=== PATIENT | female | born 1995 | race Caucasian/White ===

== ENCOUNTER 2018-05-17 23:03 | Emergency (ER) | payer OTHER ==
[2018-05-17] MEDS ORDERED: MAGNESIUM CITRATE 300 ML BOTTLE PO ONE (23:19)
[2018-05-17] MEDS ORDERED: LACTULOSE 20 GM/30 ML UDC (FOR ORAL USE ONLY) PO ONE (23:21)
[2018-05-17 23:22] VITALS: BP 129/80; PULSE 88; TEMP 98.8; BMI 20.9
[2018-05-17] MEDS ORDERED: LACTULOSE 20 GM/30 ML UDC (FOR ORAL USE ONLY) ONE (23:27)
[2018-05-17] MEDS ORDERED: MAGNESIUM CITRATE 300 ML BOTTLE ONE (23:27)
--- NOTE | 2018-05-18 00:02 | PDOC ---
History of Present Illness - General Chief Complaint: Constipation Stated Complaint: CONSTIPATED 1 WEEK Time Seen by Provider: 05/17/18 23:05 - History of Present Illness Initial Comments: 05/18/18 00:08 22-year-old female with no significant past medical history presents emergency Department with constipation for one week. Patient reports very little stool output over the last week and when she's had a bowel movement it's been hard. Denies any bleeding per rectum. Denies any change in her diet. Denies any recent illnesses. Denies recent antibiotics. Has never had a problem with constipation in the past. She tried Dulcolax 3 days ago with no improvement and today tried a Fleet enema and glycerin suppository with no bowel movement prompting her to come to the emergency department. Denies any abdominal pain, nausea, vomiting, fevers or chills. Denies chest pain or shortness of breath. Denies headache or weakness. Has not seen her primary care doctor for the symptoms. Has not been taking narcotics or other pain meds. PSH: b/l bunionectomy All: NKDA Social: denies tobacco, drug use Past History - Past Medical History Allergies/Adverse Reactions: Allergies Allergy/AdvReac Type Severity Reaction Status Date / Time No Known Drug Allergies Allergy Verified 05/17/18 23:07 Home Medications: Ambulatory Orders NK [No Known Home Medication] 05/17/18 Anemia: No Asthma: No Cancer: No Cardiac Disorders: No CVA: No COPD: No CHF: No Dementia: No Diabetes: No GI Disorders: No Disorders: No HTN: No Hypercholesterolemia: No Liver Disease: No Seizures: No Thyroid Disease: No - Surgical History Abdominal Surgery: No Appendectomy: No Cardiac Surgery: No Cholecystectomy: No Lung Surgery: No Neurologic Surgery: No Orthopedic Surgery: No - Suicide/Smoking/Psychosocial Hx Smoking History: Never smoked Have you smoked in the past 12 months: No Information on smoking cessation initiated: No Hx Alcohol Use: No Drug/Substance Use Hx: No Substance Use Type: None Hx Substance Use Treatment: No Review of Systems - Review of Systems Comments:: 05/18/18 00:10 GENERAL/CONSTITUTIONAL: No fever or chills. No weakness. HEAD, EYES, EARS, NOSE AND THROAT: No change in vision. No ear pain or discharge. No sore throat. GASTROINTESTINAL: No nausea, vomiting, diarrhea +constipation GENITOURINARY: No dysuria, frequency, or change in urination. CARDIOVASCULAR: No chest pain or shortness of breath. RESPIRATORY: No cough, wheezing, or hemoptysis. MUSCULOSKELETAL: No joint or muscle swelling or pain. No neck or back pain. SKIN: No rash NEUROLOGIC: No headache, vertigo, loss of consciousness, or change in strength/ sensation. ENDOCRINE: No increased thirst. No abnormal weight change. HEMATOLOGIC/LYMPHATIC: No anemia, easy bleeding, or history of blood clots. ALLERGIC/IMMUNOLOGIC: No hives or skin allergy. *Physical Exam - Vital Signs Last Vital Signs Temp Pulse Resp BP Pulse Ox 98.8 F 88 16 129/80 100 05/17/18 23:05 05/17/18 23:05 05/17/18 23:05 05/17/18 23:05 05/17/18 23:05 - Physical Exam Comments: 05/18/18 00:10 GENERAL: Awake, alert, and fully oriented, in no acute distress HEAD: No signs of trauma EYES: PERRLA, EOMI, sclera anicteric, conjunctiva clear ENT: Auricles normal inspection, hearing grossly normal, nares patent, oropharynx clear without exudates. Moist mucosa NECK: Normal ROM, supple, no lymphadenopathy, JVD, or masses LUNGS: Breath sounds equal, clear to auscultation bilaterally. No wheezes, and no crackles HEART: Regular rate and rhythm, normal S1 and S2, no murmurs, rubs or gallops ABDOMEN: Soft, nontender, normoactive bowel sounds. No guarding, no rebound. No masses EXTREMITIES: Normal range of motion, no edema. No clubbing or cyanosis. No cords, erythema, or tenderness NEUROLOGICAL: Normal speech, cranial nerves intact, negative pronator drift, 5/ 5 strength in all 4 extremities, normal sensation to light touch in all 4 extremities, normal cerebellar exam, normal gait, normal reflexes and tone SKIN: Warm, Dry, normal turgor, no rashes or lesions noted. ED Treatment Course - ADDITIONAL ORDERS Additional order review: Laboratory Results 05/17/18 23:18 Urine HCG, Qual Negative - RADIOLOGY Radiology Studies Ordered: Category Date Time Status ABDOMEN-KUB FLAT PLATE [RAD] Stat Radiology 05/18/18 00:00 Ordered - Medications Given in the ED: ED Medications Discontinued Medications Generic Name Dose Route Start Last Admin Trade Name Adonis PRN Reason Stop Dose Admin Lactulose 20 gm 05/17/18 23:21 05/17/18 23:29 Cephulac (Oral Use) PO 05/17/18 23:22 20 gm ONCE ONE Administration Magnesium Citrate 300 ml 05/17/18 23:19 05/17/18 23:29 Citroma - PO 05/17/18 23:20 300 ml ONCE ONE Administration Medical Decision Making - Medical Decision Making 05/18/18 00:01 22-year-old healthy female presents emergency Department with 1 week of constipation despite Dulcolax, glycerin suppository, and Fleet enema. Vitals within normal limits. On exam abdomen is soft, nontender and nondistended. Abdomen with normoactive bowel sounds. Patient given lactulose and mag citrate and had a bowel movement in the emergency department. X-ray pending although very low likelihood to be obstructed. Will reassess. 05/18/18 00:41 Pt with 2 small BMs in the ED. Unlikely obstructed, discussed with pt that XR would be low yield, and expose her to unnecessary radiation. Pt agrees to hold off for now, XR cancelled. Will prescribe laxatives PRN. Repeat abd exam remains benign, no ttp, no distention. I discussed the physical exam findings, ancillary test results and final diagnoses with the patient. I answered all of the patient's questions. The patient was satisfied with the care received and felt comfortable with the discharge plan and treatment plan. The patient will call their primary care physician within 24 hours to arrange follow-up and will return to the Emergency Department with any new, persistent or worsening symptoms. *DC/Admit/Observation/Transfer Diagnosis at time of Disposition: Constipation - Discharge Dispostion Disposition: HOME Condition at time of disposition: Stable Decision to Admit order: No - Referrals - Patient Instructions Printed Discharge Instructions: DI for Constipation, Increased Dietary Fiber May Improve Constipation Conditions With Pelvic Marvin Additional Instructions: Follow up with your primary care doctor in 2-3 days. Take 8oz golytley every hour until you start to poop, then stop drinking it. Return to the emergency department if you have any new, worsening, or concerning symptoms. - Post Discharge Activity - Attestations Physician Attestion: 05/18/18 00:45 I, Dr. Nisha Figueroa MD, attest that this document has been prepared under my direction and personally reviewed by me in its entirety. I further attest, that it accurately reflects all work, treatment, procedures and medical decision -making performed by me.
== END 2018-05-18 00:50 | disposition home or self-care (01) ==
LOC: FER 23:03
DX: K59.00 Constipation, unspecified (principal)
CPT/HCPCS: 84703; 99282-25

== ENCOUNTER 2018-10-27 06:35 | Day surgery (SDC) | payer OTHER ==
[2018-10-23 15:56] VITALS: BMI 22.1
[2018-10-27] MEDS ORDERED: BUPIVACAINE HCL/PF 0.5% (5MG/ML) 10 ML VIAL ONE (07:45)
[2018-10-27] MEDS ORDERED: LIDOCAINE 1%/EPI 1:100000 (20 ML MULTI DOSE VIAL) ONE (07:45)
[2018-10-27] MEDS ORDERED: ceFAZolin SODIUM 1 GM VIAL ONE (07:53)
[2018-10-27] MEDS ORDERED: LIDOCAINE HCL/PF 2% SDV 5ML VIAL ONE (07:53)
[2018-10-27] MEDS ORDERED: PROPOFOL 20 ML ONE ×2 (07:53)
[2018-10-27] MEDS ORDERED: MIDAZOLAM HCL 2 MG/2 ML SINGLE DOSE VIAL ONE (07:53)
[2018-10-27] MEDS ORDERED: ceFAZolin SODIUM 1 GM VIAL IVPB ONE (08:11)
[2018-10-27] MEDS ORDERED: BUPIVACAINE HCL/PF 0.5% (5MG/ML) 10 ML VIAL IJ ONE (08:23)
[2018-10-27] MEDS ORDERED: LIDOCAINE 1%/EPI 1:100000 (50 ML MULTI DOSE VIAL) NR ONE (08:23)
[2018-10-27] MEDS ORDERED: DEXAMETHASONE SOD PHOSPHATE 4 MG/1 ML VIAL ONE (08:39)
[2018-10-27] MEDS ORDERED: KETOROLAC TROMETHAMINE 30 MG/1 ML VIAL ONE (09:10)
[2018-10-27] MEDS ORDERED: ACETAMINOPHEN 500 MG TABLET (FP) PO PRN (10:04)
[2018-10-27] MEDS ORDERED: ONDANSETRON 4 MG/2 ML VIAL IVPUSH PRN (10:04)
[2018-10-27] MEDS ORDERED: oxyCODONE HCL 5 MG TABLET PO PRN (10:04)
[2018-10-27] MEDS ORDERED: LACTATED RINGERS SOLUTION 1,000 ML IV SCH (10:15)
[2018-10-27 10:35] VITALS: TEMP 97.9
--- NOTE | 2018-10-27 11:53 | OP ---
DATE OF OPERATION: 10/27/2018 SURGEON: James Pascal DPM PREOPERATIVE DIAGNOSES: 1. Left bunion with hallux valgus. 2. Irrigation of soft tissues secondary to internal fixation, left first metatarsal cuneiform joint. POSTOPERATIVE DIAGNOSES: 1. Left bunion with hallux valgus. 2. Irrigation of soft tissues secondary to internal fixation, left first metatarsal cuneiform joint. PROCEDURES: 1. Attempted removal of plate and screws from left first metatarsal cuneiform joint. 2. Left Kvng bunionectomy. DESCRIPTION OF PROCEDURE: Under fractional anesthesia and a surgical scrub with Betadine scrub and solution x2, the patient was draped using sterile technique. After 3 minutes of left limb elevation, a left ankle tourniquet was inflated to 250 mmHg pressure for 88 minutes. Inspection of the left foot showed a [id number] hallux valgus, and palpation of left foot showed a prominence at the metatarsal cuneiform joint of the previously implanted Lapidus plate. Using a No. 15 surgical blade, a 1.5-cm linear longitudinal incision was made over the most prominent portion of the plate on the dorsal aspect of the foot. The incision was deepened through fascia and deep tissue and retracted exposing the edge of the fixation plate. Using a screw extraction maintenance truck driver, it was attempted to remove the fixation screw. However, we could not get the fixation screw to unscrew from the bone, and the reciprocal started to strip so we decided to postpone the removal of the plate until a proper universal screw extraction set could be obtained. The wound was irrigated with sterile saline, and then deep tissues and superficial tissues and skin were reapproximated in 3 layers and each closed with 4-0 Vicryl suture. Steri-Strips were applied to the 1.5-cm incision. Attention was then directed to the left first metatarsophalangeal joint. The incision was made dorsally over the joint and then retracted. Superficial tissues were similarly incised and retracted. The extensor mccabe apparatus was identified and incised on the medial surface and retracted laterally. The joint capsule was then longitudinally incised. Medial and lateral sesamoid ligaments were cut, and the head of the first metatarsal was delivered into the wound. Significant adaptation of the first metatarsal head was noted since the previous bunionectomy performed in 2013. Any bone spurs or abnormally large prominences at the first metatarsal head were resected using the bone saw. Care was taken not to remove too much of the medial surface of the first metatarsal head. Then, the osteotomy was performed at the anatomic neck of the first metatarsal head, and then the metatarsal head was transposed laterally and fixed on the shelf of the shaft of the first metatarsal. It was temporarily fixed with 2 Kirshner wires and then more permanently fixed with two 2.5, 18 mm long Elbert headless bone screws. Following stable internal fixation, the medial portion of the first metatarsal shaft was resected and remodeled to be relatively smooth and non-prominent. Lateral transposition of the metatarsal head was approximately 4 to 5 mm, and the wound was then irrigated with sterile saline, and joint capsule was reapproximated and closed with 3-0 Vicryl suture. The extensor mccabe apparatus reapproximated into a more normal anatomic position and sutured with 3-0 Vicryl sutures. Fascia closed with 4-0 Vicryl suture and then skin was reapproximated and closed with 4-0 Vicryl subcuticular sutures and Steri-Strips. The ankle tourniquet was deflated after 88 minutes of inflation, and vascular perfusion immediately returned to all 5 digits, so a dry sterile dressing was applied to the left foot. The patient tolerated the surgical procedure well and left the operating room stable, alert, awake, and in no pain. HITESH BAUER/[id number]
[2018-10-27] MEDS ORDERED: ONDANSETRON 4 MG/2 ML VIAL ONE (12:38)
[2018-10-27] MEDS ORDERED: ONDANSETRON 4 MG/2 ML VIAL IVPB ONE (12:46)
[2018-10-27 14:51] VITALS: BP 108/61; PULSE 73
--- NOTE | 2018-10-30 11:18 | PATH ---
Surgical Pathology Report Patient Name: RAAD BERGER [facility]. Rec. #: [id number] /Age/Gender: 1995 (Age: 23) / F Account: [id number] Location: [facility] SURGICAL Taken: 10/27/2018 Received: 10/27/2018 Reported: 10/30/2018 Physicians: James Pascal M.D. Specimen(s) Received BUNION LEFT FOOT Clinical History Bunion left foot/displace fix bone of foot and toe Final Diagnosis FOOT, LEFT, BUNION, REMOVAL: BONE WITH DEGENERATIVE CHANGES AND DENSE FIBROCONNECTIVE TISSUE. Electronically Signed Marta Solorio M.D. Gross Description Received in formalin labeled "bunion left foot," is a 1.8 x 1.4 x 0.2 cm aggregate of henderson bone fragments. The specimen is entirely submitted in one cassette, following decalcification. /10/27/2018 saudi10/27/2018
== END 2018-10-27 14:50 | disposition home or self-care (01) ==
LOC: JASU-SURG 06:35
PROVIDERS: ATTEND Podiatrist Foot Surgery
PROC: 0YPB0YZ Removal of Other Device from Left Lower Extremity, Open Approach (ICD-10-PCS; 2018-10-27)
PROC: 0QBR0ZZ Excision of Left Toe Phalanx, Open Approach (ICD-10-PCS; principal; 2018-10-27 08:00)
DX: M21.612 Bunion of left foot (principal); M20.12 Hallux valgus (acquired), left foot; T84.223A Displacement of internal fixation device of bones of foot and toes, initial encounter; Z53.8 Procedure and treatment not carried out for other reasons
CPT/HCPCS: 73630-TC-LT; 84703; 88305-TC; 88311-TC; 94760